=== PATIENT | female | born 1975 | race Caucasian/White ===

== ENCOUNTER 2020-02-04 18:06 | Emergency (ER) | payer OTHER, BC ==
[~2020-02-04] VITALS: Ht 175.3 cm; Wt 101.6 kg
[~2020-02-04 18:06] MED LIST: ETODOLAC500 MG PO; FISH OIL 1,0001 EAC3 PO; FOLIC ACID20 MG PO; METHOTREXATE2.5 MG PO; MOTRIN IB200 MG PO; NORCO 5-325 TA1 EACH PO; PROBIOTIC1 EAC1 PO; STELARA45 MG/0.1 SUB-Q
--- OUTSIDE RECORDS SUMMARY | 2020-02-04 18:08 | XMS ---
PreManage Notification: BONIFACIO CLINE Security [employer] Events No recent Security Events currently on file [facility] There are no care providers on record at this time. Kevin has no Care Guidelines for this patient. Jenae VISIT COUNT (12 MO.) 1 JOSE Macias TOTAL 1 NOTE: Visits indicate total known visits. ED/C VISIT TRACKING (12 MO.) 02/04/2020 18:06 JOSE [facility] OR TYPE: Emergency COMPLAINT: - NECK PAIN/ INJURY INPATIENT VISIT TRACKING (12 MO.) No inpatient visits to display in this time frame [email or web address]
[2020-02-04] MEDS ORDERED: TRIAMCINOLONE A15 G1 TOP (18:41)
== END 2020-02-04 19:45 | disposition home or self-care (01) ==
LOC: ED 18:06
DX: S06.0X0A Concussion without loss of consciousness, initial encounter (principal); S16.1XXA Strain of muscle, fascia and tendon at neck level, initial encounter; W00.0XXA Fall on same level due to ice and snow, initial encounter; Z88.0 Allergy status to penicillin; Z88.2 Allergy status to sulfonamides; Z91.048 Other nonmedicinal substance allergy status; Z79.899 Other long term (current) drug therapy
CPT/HCPCS: 99283

== ENCOUNTER 2021-06-18 06:30 | Day surgery (SDC) | payer OTHER ==
[~2021-06-18] VITALS: Ht 175.3 cm; Wt 104.5 kg
[~2021-06-18 06:30] MED LIST changes: +TREMFYA100 MG/11 SQ; +TRIAMCINOLONE A15 G1 TOP
[2021-06-18] MEDS ORDERED: HYDROCODON-ACE1 EA10 PO (08:34)
--- NOTE | 2021-06-18 08:40 | NUR ---
06/18/21 0840 Becky Farmer 0836- PT ARRIVES TO PACU AWAKE AND TALKING. PT REPORTS NO PAIN OR NAUSEA. RESP EVEN AND UNLABORED. OXYGEN SAT HIGH 90'S TO 100% ON 6L VIA MASK. 0838- OXYGEN TITRATED OFF. ICE PACK PLACED TO PT'S LEFT WRIST/ HAND.
--- NOTE | 2021-06-19 09:49 | OR ---
[facility] [address] [place], [place] [address] Signed DATE OF OPERATION: 06/18/2021 SURGEON: Carter Kapoor MD PREOPERATIVE DIAGNOSIS: Left carpal tunnel syndrome. POSTOPERATIVE DIAGNOSIS: Left carpal tunnel syndrome. PROCEDURE PERFORMED: Left carpal tunnel release. ANESTHESIA: David block. TOURNIQUET TIME: 20 minutes. BRIEF HISTORY: Bonifacio is a 45-year-old female with progressive worsening of pain and numbness in her hand. She had undergone nerve conduction studies which were consistent with carpal tunnel. Risks and benefits of operative treatment were discussed with her and she elected to proceed. Once consent was obtained she was taken to the operating room. After adequate anesthesia, the arm was prepped and draped in a standard sterile fashion. The carpal tunnel was approached through a 1.5 cm incision in the distal wrist crease. This was carried down to the transverse carpal ligament. The palmaris longus was identified, retracted and protected. Under loupe magnification. The transverse carpal ligament was released proximally a cm. Distally, the soft tissue was dissected free of the overlying surface. It was released to the distal extent of the ligament. This was palpated using the Thayer and found to be completely released. All bleeders were cauterized as we went. The wound was irrigated with normal saline, closed with 3-0 nylon and injected with 9 mL 0.25% Marcaine plain. The wound was dressed with bacitracin, Adaptic 4 x 8s, and gauze. She tolerated the procedure well. All sponge, needle, and instrument counts were correct. Carter Kapoor MD Electronically Signed By: CARTER KAPOOR MD 06/19/21 0949 PATIENT NAME: BONIFACIO CLINE OPERATIVE REPORT DATE OF : 79 REPORT #: [id number] PHYSICIAN: CARTER KAPOOR MD PCP: NO PRIMARY CARE PHYSICIAN REPORT IS CONFIDENTIAL AND NOT TO BE RELEASED WITHOUT AUTHORIZATION [address] [place] [address] Signed /[facility] /[id number] Copies: ~ Electronically Signed By: CARTER KAPOOR MD 06/19/21 0949 PATIENT NAME: BONIFACIO CLINE OPERATIVE REPORT DATE OF : 79 REPORT #: [id number] PHYSICIAN: CARTER KAPOOR MD PCP: NO PRIMARY CARE PHYSICIAN REPORT IS CONFIDENTIAL AND NOT TO BE RELEASED WITHOUT AUTHORIZATION
== END 2021-06-18 09:16 | disposition home or self-care (01) ==
LOC: DS 06:30
PROVIDERS: ATTEND Specialist
PROC: 01N50ZZ Release Median Nerve, Open Approach (ICD-10-PCS; principal; 2021-06-18 08:10)
DX: G56.03 Carpal tunnel syndrome, bilateral upper limbs (principal); Z88.1 Allergy status to other antibiotic agents; Z91.040 Latex allergy status; Z88.0 Allergy status to penicillin; Z88.2 Allergy status to sulfonamides; Z91.048 Other nonmedicinal substance allergy status
CPT/HCPCS: J0690; J2704; J7121

== ENCOUNTER 2021-10-14 08:31 | Emergency (ER) | payer OTHER ==
[~2021-10-14] VITALS: Ht 175.3 cm; Wt 112.0 kg
[~2021-10-14 08:31] MED LIST changes: +HYDROCODON-ACE1 EA10 PO
[2021-10-14] MEDS ORDERED: HYDROCODON-ACE1 EA10 PO (14:03)
== END 2021-10-14 14:16 | disposition home or self-care (01) ==
LOC: ED 08:31
DX: R10.9 Unspecified abdominal pain (principal); Z88.0 Allergy status to penicillin; Z88.2 Allergy status to sulfonamides; Z91.048 Other nonmedicinal substance allergy status; Z79.899 Other long term (current) drug therapy
CPT/HCPCS: 36415; 74176; 76830; 76856; 80053; 81001; 85025; 96374; 96375; 99284-25; J1170; J1885; J2405

== ENCOUNTER 2021-10-17 08:49 | Emergency (ER) | payer OTHER ==
[~2021-10-17] VITALS: Ht 175.3 cm; Wt 111.6 kg
[2021-10-17] MEDS ORDERED: PREDNISONE20 MG PO (09:39)
== END 2021-10-17 09:52 | disposition home or self-care (01) ==
LOC: ED 08:49
DX: M54.50 Low back pain, unspecified (principal); Z88.0 Allergy status to penicillin; Z88.2 Allergy status to sulfonamides; Z91.048 Other nonmedicinal substance allergy status; Z79.899 Other long term (current) drug therapy
CPT/HCPCS: 81001; 87088; 99283; J7512

== ENCOUNTER 2023-11-14 11:25 | Emergency (ER) | payer OTHER ==
[~2023-11-14] VITALS: Ht 175.3 cm; Wt 107.4 kg
[~2023-11-14 11:25] MED LIST changes: +PREDNISONE20 MG PO
[2023-11-14] MEDS ORDERED: IBLOOD GLUCOSE TEST STRIP 1 EA TEST XX ONE (11:45)
[2023-11-14] MEDS ORDERED: SODIUM CHLORIDE 0.9% 1,000 ML IV PRN (11:45)
[2023-11-14] MEDS ORDERED: ondansetron HCL 4 MG/2 ML VIAL IV ONE (11:45)
[2023-11-14 11:49] LABS: BASOPHILS 0.7 % (0-2); EOSINOPHILS 1.2 % (0-6); HEMATOCRIT 43.5 % (35.0-50.0); HEMOGLOBIN 14.3 g/dL (12.0-18.0); LYMPHOCYTES 27.5 % (24-44); MCH 28.4 (27-36); MCHC 32.9 g/dl (30-36); MCV 86.5 fl (81-99); MONOCYTES 5.8 % (0-12); NEUTROPHILS 64.8 % (39-80); PLATELET COUNT 285 K/uL (140-440); RBC 5.03 M/ul (4.3-5.7); RDW 14.7 (10.5-15.0)
[2023-11-14 12:07] LABS: ALBUMIN 3.8 g/dL (3.4-5.0); ALBUMIN/GLOBULIN RATIO 0.97 (1.1-2.4); ALKALINE PHOSPHATASE 51 U/L (46-116); ALT (SGPT) 27 U/L (14-59); ANION GAP 12.6 (7-21); AST (SGOT) 15 U/L (15-37); BILIRUBIN, TOTAL 0.6 ng/dL (0.2-1.0); BUN/CREATININE RATIO 11.36 (6.0-28.6); CALCIUM 9.3 mg/dL (8.5-10.1); CARBON DIOXIDE 26 mmol/L (21-32); CHLORIDE 103 mmol/L (98-107); CREATININE, SERUM 0.88 mg/dL (0.55-1.02); GLOMERULAR FILTRATION RATE,EST 82 mL/min (>60); POTASSIUM 3.6 mmol/L (3.5-5.1); PROTEIN, TOTAL 7.7 g/dL (6.4-8.2); UREA NITROGEN 10 mg/dL (7-18)
[2023-11-14 12:14] LABS: INR 0.97 (0.80-1.30); PARTIAL THROMBOPLASTIN TIME 24.4 Sec (22.9-41.3); PROTIME 12.2 Sec (11.2-14.2)
[2023-11-14] MEDS ORDERED: WEGOVY1 MG/0.5 M SUB-Q (13:11)
[2023-11-14] MEDS ORDERED: FOLIC ACID1 MG PO (13:11)
[2023-11-14] MEDS ORDERED: ETODOLAC600 MG PO (13:15)
[2023-11-14] MEDS ORDERED: MIDAZOLAM HCL 2 MG/2 ML VIAL IV ONE (13:15)
[2023-11-14] MEDS ORDERED: SKYRIZI PE150 MG/1 M SUB-Q (13:17)
[2023-11-14] MEDS ORDERED: WEGOVY1.7 MG/0.7 SUB-Q (13:18)
[2023-11-14 14:28] LABS: AMPHETAMINES, URINE NEGATIVE (NEGATIVE); BARBITURATES, URINE NEGATIVE (NEGATIVE); BENZODIAZEPINE, URINE POSITIVE (NEGATIVE); BUPRENORPHINE, URINE NEGATIVE (NEGATIVE); CANNABINOID, URINE NEGATIVE (NEGATIVE); COCAINE, URINE NEGATIVE (NEGATIVE); ECSTASY, URINE NEGATIVE (NEGATIVE); FENTANYL, URINE NEGATIVE (NEGATIVE); METHADONE, URINE NEGATIVE (NEGATIVE); OPIATES, URINE NEGATIVE (NEGATIVE); OXYCODONE, URINE NEGATIVE (NEGATIVE); PHENCYCLIDINE, URINE NEGATIVE (NEGATIVE)
[2023-11-14] MEDS ORDERED: MECLIZINE HCL25 MG PO (14:48)
[2023-11-14] MEDS ORDERED: ASPIRIN 325 MG TAB PO ONE (15:00)
[2023-11-14 15:02] VITALS: BP 135/85
--- NOTE | 2023-11-14 21:46 | EKG ---
[facility] [address] [facility] [place] [address] Signed Normal sinus rhythm Normal ECG No previous ECGs available Confirmed by Laurel Wilson MD () on 11/14/2023 9:46:12 PM Electronically Signed By: LAUREL WILSON MD 11/14/23 2146 PATIENT NAME: BONIFACIO CLINE Electrocardiogram DATE OF : 79 PHYSICIAN: LAUREL WILSON MD REPORT #: [id number] REPORT IS CONFIDENTIAL AND NOT TO BE RELEASED WITHOUT AUTHORIZATION
== END 2023-11-14 15:04 | disposition home or self-care (01) ==
LOC: ED 11:25
PROVIDERS: Emergency Medicine
DX: R42 Dizziness and giddiness (principal); Z88.0 Allergy status to penicillin; Z88.2 Allergy status to sulfonamides; Z91.09 Other allergy status, other than to drugs and biological substances; Z79.899 Other long term (current) drug therapy
CPT/HCPCS: 36415; 70450; 70496; 70498; 70553; 71045; 80053; 80307; 84484; 84703; 85025; 85610; 85730; 93005; 93010; 96361; 99285-25; A9579; J2250; J2405; J7030; Q9967